=== PATIENT | male | born 1960 | race Caucasian/White ===

== ENCOUNTER → 2017-06-22 | Outpatient (REF) | payer MEDICARE, MEDICAID | LOC: M SMT 16:56 | PROVIDERS: ATTEND Nurse Practitioner Women's Health | DX: Q61.00 Congenital renal cyst, unspecified (principal); Z79.84 Long term (current) use of oral hypoglycemic drugs; Z79.82 Long term (current) use of aspirin; Z79.899 Other long term (current) drug therapy | CPT/HCPCS: 36415; 80048; 81001; 87086; G0463 ==

== ENCOUNTER → 2017-06-22 | Outpatient (CLI) | payer MEDICARE, MEDICAID ==
[2017-06-22 18:32] LABS: ANION GAP 5 MEQ/L (8-16); BLOOD UREA NITROGEN 12 MG/DL (7-18); CALCIUM LEVEL 8.4 MG/DL (8.5-10.1); CARBON DIOXIDE LEVEL 34 MEQ/L (21-32); CHLORIDE LEVEL 104 MEQ/L (98-107); CREATININE FOR GFR 0.94 MG/DL (0.70-1.30); GLOMERULAR FILTRATION RATE > 60.0 (>56); GLUCOSE, FASTING 135 MG/DL (70-105); POTASSIUM SERUM 4.2 MEQ/L (3.5-5.1); SODIUM LEVEL 143 MEQ/L (136-145)
== END ==
LOC: M SMT 13:34
PROVIDERS: ATTEND Nurse Practitioner Women's Health
DX: Q61.00 Congenital renal cyst, unspecified (principal)

== ENCOUNTER → 2017-07-13 | Outpatient (CLI) | payer MEDICARE, MEDICAID | LOC: M SMT 10:51 | PROVIDERS: ATTEND Nurse Practitioner Women's Health | DX: Z12.5 Encounter for screening for malignant neoplasm of prostate (principal) | CPT/HCPCS: 36415; G0103 ==

== ENCOUNTER → 2017-07-13 | Outpatient (REF) | payer MEDICARE, MEDICAID | LOC: M SMT 19:18 | PROVIDERS: ATTEND Urology | DX: N32.89 Other specified disorders of bladder (principal) ==

== ENCOUNTER → 2017-09-22 | Outpatient (REF) | payer MEDICARE, MEDICAID ==
[2017-09-22 19:56] LABS: APPEARANCE, URINE CLEAR (CLEAR); BACTERIA, URINE AUTO NEGATIVE (NEGATIVE); BILIRUBIN, URINE AUTO NEGATIVE (NEGATIVE); BLOOD, URINE BLOOD NEGATIVE (NEGATIVE); COLOR, URINE YELLOW (YELLOW); GLUCOSE, URINE (UA) AUTO NEGATIVE (NEGATIVE); KETONE, URINE AUTO NEGATIVE (NEGATIVE); LEUKOCYTE ESTERASE, URINE AUTO NEGATIVE (NEGATIVE); NITRITE, URINE AUTO NEGATIVE (NEGATIVE); PROTEIN, URINE AUTO NEGATIVE (NEGATIVE); RBC, URINE AUTO 1 /HPF (0-3); SPECIFIC GRAVITY URINE AUTO 1.023 (1.002-1.035); SQUAMOUS EPITHELIAL CELL UR AU 1 /HPF (0-6); UROBILINOGEN, URINE AUTO 0.2 mg/dL (0.0-2.0); WBC, URINE AUTO 2 /HPF (0-3)
== END ==
LOC: M SMT 16:57
DX: N32.89 Other specified disorders of bladder (principal); N28.1 Cyst of kidney, acquired
CPT/HCPCS: 81001

== ENCOUNTER 2020-12-15 10:27 | Emergency (ER) | payer MEDICARE, MEDICAID ==
[2020-12-15] MEDS ORDERED: QUET200T2 (12:02)
[2020-12-15] MEDS ORDERED: QUET100T2 (12:02)
[2020-12-15] MEDS ORDERED: CLON-412 (12:02)
[2020-12-15] MEDS ORDERED: CALC-356 (12:02)
[2020-12-15] MEDS ORDERED: LORAPOW30 (12:02)
[2020-12-15] MEDS ORDERED: PENT500C (12:02)
[2020-12-15] MEDS ORDERED: TRAD5TAB (12:02)
[2020-12-15] MEDS ORDERED: PARO40TA2 (12:02)
[2020-12-15] MEDS ORDERED: OMEP-218 (12:02)
[2020-12-15] MEDS ORDERED: METF-838 (12:02)
[2020-12-15] MEDS ORDERED: VITA50005 (12:02)
[2020-12-15] MEDS ORDERED: FERR5ELX (12:02)
[2020-12-15] MEDS ORDERED: PRAV80TA2 (12:02)
[2020-12-15 12:27] VITALS: BP 121/57
== END 2020-12-15 12:37 | disposition home or self-care (01) ==
LOC: M ED 10:27
DX: E11.9 Type 2 diabetes mellitus without complications (principal); R41.841 Cognitive communication deficit; Z79.899 Other long term (current) drug therapy; Z79.84 Long term (current) use of oral hypoglycemic drugs; Z88.8 Allergy status to other drugs, medicaments and biological substances

== ENCOUNTER → 2022-09-10 | Outpatient (REF) | payer MEDICARE, MEDICAID ==
[~2022-09-10] MED LIST: CALC-356; CLON-412; ERGO500029; FERR5ELX; LORAPOW30; METF-838; OMEP-173; PARO40TA2; PENT500C; PRAV80TA2; QUET100T2; QUET200T2; TRAD5TAB
== END ==
LOC: M SFHCWOUN 11:38
PROVIDERS: ATTEND Surgery
DX: M86.18 Other acute osteomyelitis, other site (principal)